=== PATIENT | female | born 1965 | race Asian ===

== ENCOUNTER 2020-09-03 22:23 | Emergency (ER) | payer OTHER, SELFPAY ==
--- NOTE | ~2020-09-03 | CT_ITS ---
EXAMINATION: CT abdomen pelvis w con EXAM DATE: 09/04/2020 00:25 INDICATION: Abdominal wall abscess. TECHNIQUE: Spiral CT of the abdomen and pelvis was performed following intravenous injection of 100 m L Omnipaque 350. Axial, coronal and sagittal images of the abdomen and pelvis were reviewed. The do se-length product (DLP) for this examination was 926.44 mGy-cm. The exposure was tailored according to patient size (auto mA exposure control), and iterative reconstruction (ASIR) was used as additiona l dose reduction technique. There is no prior study for comparison. FINDINGS: The liver, spleen, adrenal glands and pancreas are unremarkable. Gallbladder is unremarkab le. No biliary obstruction. Portal and splenic veins are patent. Kidneys enhance symmetrically. T here is no hydronephrosis. The uterus is not identified and has likely been surgically resected. T he bladder is unremarkable. There is no retroperitoneal or pelvic lymphadenopathy. There is mild s cattered arteriosclerotic disease. There is a rectosigmoid anastomosis. There is some presacral fat stranding. Small region of right low er pelvic free fluid measuring 1.4 x 4.5 cm, in dependent portion of pelvis and contiguous to several ileal loops. This could be postoperative seroma, and contain physiologic fluid from a ruptured cyst. Can't exclude infected fluid. There is right lower quadrant ileostomy. Some edema, fat stranding/ind uration in the subcutaneous fat below the umbilicus without drainable abscess. There are no findings to suggest appendicitis. The stomach and small bowel are unremarkable. There is expected amount of colonic stool. No free intraperitoneal gas. The heart is normal in size. T here are no pericardial or pleural effusions. Lingular calcified granuloma. There are no osteoblast ic or osteolytic lesions identified. IMPRESSION: 1. Anterior infraumbilical abdominal wall region of edema medial to the ostomy without drainable abs cess. 2. Presacral edema, small amount of right-sided pelvic fluid. Could be postoperative seroma, physiol ogic, less likely abscess. Reviewed, dictated and finalized at location A. IMPRESSION: 1. Anterior infraumbilical abdominal wall region of edema medial to the ostomy without drainable abscess. 2. Presacral edema, small amount of right-sided pelvic fluid. Could be postope rative seroma, physiologic, less likely abscess.
[2020-09-03 22:25] VITALS: BP 140/82; PULSE 96; RESP 18; O2SAT 98
[2020-09-03 22:30] VITALS: TEMP 36.3
[2020-09-03 23:00] VITALS: BP 107/81; PULSE 89; RESP 16; O2SAT 98
[2020-09-03] MEDS: ONDANSETRON INJ 4 MG/2 ML VIAL IV PUSH (23:39)
[2020-09-03] MEDS: HYDROmorphone HCL INJ (*CRX) 1 MG/ML SYR 0.5 MG IV PUSH (23:39)
--- NOTE | 2020-09-03 23:40 | ED.SKABFB ---
HPI - Skin/Abscess/Foreign Bdy General Chief complaint: Skin/Abscess/Foreign Body Stated complaint: burst abscess near ostomy Time Seen by Provider: 09/03/20 23:05 Source: patient and RN notes reviewed Mode of arrival: EMS Limitations: no limitations History of Present Illness HPI narrative: This is a 55 year old female with history of rectal CA, s/p colon resection with colostomy who presents for evaluation of abdominal wound. She states she developed redness, swelling and pain around her colostomy on . She states she had the colostomy placed in mid July at [facility]. Her surgeon started her on Amoxicillin on Tuesday. She has been taking her antibiotics but her wound has become more painful. She states her home health nurse placed dressing and a belt around her abdomen. Just prior to arrival she states the wound ruptured with pus and blood. She denies fever, nausea, vomiting. She was started on tramadol today. Related Data Allergies Allergy/AdvReac Type Severity Reaction Status Date / Time No Known Allergies Allergy Verified 09/03/20 23:38 Review of Systems Review of Systems: All systems reviewed & are unremarkable except as noted in HPI and below PMFSH Past Medical History Medical History (Updated 09/04/20 @ 07:53 by Jana Sanders MD) Colostomy in place Rectal cancer Social History Social History (Updated 09/03/20 @ 23:49 by Jana Sanders MD) Smoking status: Never smoker Exam Const: General: no acute distress and alert Orientation/consciousness: patient oriented x3 Resp: Effort & Inspection: normal respiratory effort and no retractions Auscultation: clear to auscultation bilaterally Cardio: Rate: regular rate Rhythm: regular rhythm Heart sounds: no murmurs GI: GI Palp: Yes Soft to palpation and Yes Tenderness to palpation present (GI) (along infection) Auscultation: normal bowel sounds Other: right mid abdomen colostomy, medial to colostomy is large erythematous area with induration 15 c x 10 cm with central area of necrotic wound draining blood. Neuro: General: patient oriented x3, moves all extremities and CN's II-XI intact bilaterally Psych: Mental Status: mental status grossly normal Affect: normal affect Course Reevaluation(s) Reevaluation #1: Patient is aware of CT report and that she is awaiting bed for transfer to [facility] Date: 09/04/20 Time: 02:39 Consultations Consultation #1: I spoke with Dr. Campbell of colorectal surgery. He accepts patient to service. No further recommendations at this time. Date: 09/04/20 Time: 02:39 Vital Signs Vital signs: Vital Signs Pulse Rate 96 09/03/20 22:25 Respiratory Rate 18 09/03/20 22:25 Blood Pressure 140/82 09/03/20 22:25 Pulse Oximetry 98 09/03/20 22:25 Temperature 97.7 F 09/04/20 04:56 Pulse Rate 71 09/04/20 04:53 Respiratory Rate 16 09/04/20 04:53 Blood Pressure 111/72 09/04/20 04:53 Pulse Oximetry 98 09/04/20 04:53 MDM - Skin/Abscess/Foreign Bdy Lab Data Attestation: I reviewed the patient's lab results. Result diagrams: 09/03/20 23:36 09/03/20 23:36 Labs: Lab Results 09/03/20 09/03/20 09/03/20 Range/Units 23:36 23:36 23:36 WBC 8.2 (4.5-10.0) K/mm3 RBC 3.93 L (4.2-5.4) M/mm3 Hgb 11.7 L (12.0-15.0) g/dL Hct 36.8 L (37.0-47.0) % MCV 93.6 (80-100) fl MCH 29.8 (26-34) pg MCHC 31.8 L (32-36) g/dl RDW 12.7 (11.5-14.5) % Plt Count 258 (150-375) k/mm3 MPV 9.4 (7.4-10.4) fl Immature Gran % (Auto) 1.6 H (0-0.5) % Neut % (Auto) 74.8 H (45.5-73.1) % Lymph % (Auto) 8.8 L (18.3-44.2) % [place] % (Auto) 7.6 (2.6-8.5) % Eos % (Auto) 7.0 H (0-4.4) % Baso % (Auto) 0.2 (0.2-1.2) % Lymph # (Auto) 0.72 L (0.9-3.2) K/mm3 [place] # (Auto) 0.6 (0.1-0.6) K/mm3 Eos # (Auto) 0.6 H (0-0.3) K/mm3 Baso # (Auto) 0.0 (0.0-0.1) K/mm3 Abs Immat Gran (auto) 0.13 H (0.
[2020-09-03 23:42] LABS: Basophils Percent Auto 0.2 % (0.2-1.2); Eosinophils Absolute Auto 0.6 K/mm3 (0-0.3); Hematocrit 36.8 % (37.0-47.0); Hemoglobin 11.7 g/dL (12.0-15.0); Immature Granulocyte Absolute 0.13 K/mm3 (0.00-0.031); Immature Granulocyte Percent A 1.6 % (0-0.5); Lymphocytes Absolute Auto 0.72 K/mm3 (0.9-3.2); Lymphocytes Percent Auto 8.8 % (18.3-44.2); Mean Corpuscular HGB Conc 31.8 g/dl (32-36); Mean Corpuscular Hemoglobin 29.8 pg (26-34); Mean Corpuscular Volume 93.6 fl (80-100); Mean Platelet Volume 9.4 fl (7.4-10.4); Monocytes Absolute Auto 0.6 K/mm3 (0.1-0.6); Monocytes Percent Auto 7.6 % (2.6-8.5); Neutrophils Absolute Auto 6.1 K/mm3 (1.3-6.7); Neutrophils Percent Auto 74.8 % (45.5-73.1); Platelet Count Result 258 k/mm3 (150-375); Red Blood Count 3.93 M/mm3 (4.2-5.4); Red Cell Distribution Width 12.7 % (11.5-14.5); White Blood Count 8.2 K/mm3 (4.5-10.0)
[2020-09-03 23:53] LABS: INR 0.9
[2020-09-03 23:54] LABS: Partial Thromboplastin Time 33.7 SECONDS (22.3-36.8)
[2020-09-03 23:55] LABS: Alanine Aminotransferase 121 U/L (4-35); Albumin Level 3.8 g/dL (3.5-5.1); Alkaline Phosphatase 229 U/L (38-126); Anion Gap 11 mmol/L (8-16); Aspartate Amino Transferase 51 U/L (14-36); Bilirubin,Total 0.4 mg/dL (0.2-1.3); Blood Urea Nitrogen 12 mg/dL (7-17); CRP 7.9 mg/dL (<1.0); Calcium 9.6 mg/dL (8.4-10.2); Carbon Dioxide 27 mmol/L (22-30); Chloride 102 mmol/L (98-107); Estimated CRCL calculation 90 ml/min; Estimated Glomerular Filt Rate > 60; Glucose 127 mg/dL (65-105); Potassium 3.7 mmol/L (3.4-5.0); Sodium 140 mmol/L (137-145)
[2020-09-04] VITALS: BP 104/77; PULSE 81; RESP 16; O2SAT 98
[2020-09-04 01:00] VITALS: BP 103/69; PULSE 87; RESP 18; O2SAT 98
[2020-09-04 02:00] VITALS: BP 122/84; PULSE 84; RESP 18; O2SAT 98
--- NOTE | 2020-09-04 02:54 | PC.NURSE ---
0045-Report to Rolanda at [facility] transfer center, no bed available at this time
--- NOTE | 2020-09-04 04:10 | PC.NURSE ---
Patient moved to room 1 where a regular hospital bed was placed for her. Patient ambulated without diff.
--- NOTE | 2020-09-04 04:51 | PC.NURSE ---
called [facility] to request transport. ETA 15-20 minutes
[2020-09-04 04:53] VITALS: BP 111/72; PULSE 71; RESP 16; O2SAT 98
--- NOTE | 2020-09-04 04:53 | PC.NURSE ---
Report called to Lyric FRYE at [facility] for patient to go to room 0443
[2020-09-04 04:56] VITALS: TEMP 36.5
== END 2020-09-04 05:21 | disposition short-term general hospital (02) ==
PROVIDERS: Emergency Provider General Practice
DX: L02.211 Cutaneous abscess of abdominal wall (principal); L03.311 Cellulitis of abdominal wall; Z93.3 Colostomy status
CPT/HCPCS: 36415; 74177; 80053; 85025; 85610; 85730; 86140; 87040; 96365; 96366; 96367; 96375; 99284; 99285; J1170; J2405; J2543; J3370; Q9967

== ENCOUNTER 2020-12-27 16:57 | Emergency (ER) | payer OTHER, SELFPAY ==
[2020-12-27 17:08] VITALS: BP 131/80; PULSE 82; RESP 16; TEMP 36.2; O2SAT 100
--- NOTE | 2020-12-27 17:17 | ED.FEMALEGU ---
HPI - Female Genitourinary General Chief complaint: Urogenital-Female Stated complaint: UTI Time Seen by Provider: 12/27/20 17:17 Source: patient Mode of arrival: ambulatory Limitations: no limitations History of Present Illness HPI Narrative: Nael Wilder is a 55 yo female with PMH of colon cancer who comes to express care with urinary frequency and burning that started yesterday. She has not had a UTI for 4 years but has had them over the years. She is post chemo and is learning to manage left or symptoms of colon resection etc. Related Data Home Medications Medication Instructions Recorded Confirmed atropine 12/27/20 diphenoxylate-atropine tablet 12/27/20 Allergies Allergy/AdvReac Type Severity Reaction Status Date / Time No Known Allergies Allergy Verified 12/27/20 17:26 Review of Systems Review of Systems: CONSTITUTIONAL: Denies fever, chills, sweats. EYES: Denies visual changes, redness, discharge. ENT: Denies rhinorrhea, congestion, sore throat, otalgia. CARDIOVASCULAR: Denies chest pain, palpitations, edema. RESPIRATORY: Denies dyspnea, wheezing, cough GASTROINTESTINAL: Denies abdominal pain, nausea, vomiting, diarrhea. GENITOURINARY: has dysuria, hematuria, abnormal discharge SKIN: Denies rash or itching. NEUROLOGIC: Denies numbness, or focal weakness. PSYCHIATRIC: Denies anxiety or depression. [facility] Past Medical History Medical History Colostomy in place Rectal cancer Social History Social History (Updated 12/27/20 @ 17:34 by Sarah Eid CNP) Smoking status: Never smoker Alcohol intake: current Comments At time of signature, I agree with nursing past medical, surgical, social and family history. There is no relevant family history pertinent to the presenting complaint. Exam Narrative: GENERAL: This is a well-nourished, well-developed patient, in mild distress. HEAD: normocephalic, atraumatic. EYES: Sclera clear/white. Vision is grossly intact. EARS: External ears normal, . Hearing grossly intact. NOSE: External nose normal without nasal discharge, nares without redness, no rhinorrhea. THROAT: Mucous membranes moist, NECK: Neck supple, CARDIOVASCULAR: Regular rate and rhythm without murmurs, gallops, or rubs. RESPIRATORY: Clear to auscultation. Breath sounds equal bilaterally. No wheezes, rales, or rhonchi. GASTROINTESTINAL: Abdomen soft, non-tender, has colostomy in place SKIN: warm, intact with no suspicious lesions or rash, good texture and turgor. NEURO: awake, alert, and oriented to person, place and time. There were no obvious focal neurologic abnormalities. Steady gait EXTREMITIES: Normal range of motion. BACK: Nontender without deformity Course Course Emergency Course: [facility] yesterday UA shows positive nitrite, 3+ leukocytes, 1+ blood Started on cephalexin 500 mg 1 twice daily x5 days, has had a hysterectomy and she states that she does not need Diflucan Vital Signs Vital signs: Vital Signs Temperature 97.1 F L 12/27/20 17:08 Pulse Rate 82 12/27/20 17:08 Respiratory Rate 16 12/27/20 17:08 Blood Pressure 131/80 12/27/20 17:08 Pulse Oximetry 100 12/27/20 17:08 Temperature 97.1 F L 12/27/20 17:08 Pulse Rate 82 12/27/20 17:08 Respiratory Rate 16 12/27/20 17:08 Blood Pressure 131/80 12/27/20 17:08 Pulse Oximetry 100 12/27/20 17:08 MDM - Female Genitourinary Differential Diagnosis Differential diagnosis: Likely urinary tract infection, cystitis and other Lab Data Labs: Urine Glucose Negative Reference Range: Negative Urine Bilirubin Negative Reference Range: Negative Urine Ketone Negative Reference Range: Negative Urin
== END 2020-12-27 17:40 | disposition home or self-care (01) ==
PROVIDERS: Emergency Provider Nurse Practitioner
DX: N30.01 Acute cystitis with hematuria (principal); Z85.048 Personal history of other malignant neoplasm of rectum, rectosigmoid junction, and anus
CPT/HCPCS: 81003; 87077; 87086; 87088; 87186; 99213; G0463

== ENCOUNTER 2021-01-06 18:31 | Emergency (ER) | payer OTHER, SELFPAY ==
--- NOTE | ~2021-01-06 | XR_ITS ---
EXAMINATION: XR knee LT 3V DATE: 01/06/2021 19:27 INDICATION: Left knee injury. TECHNIQUE: 3 views of left knee were obtained. COMPARISON: None. FINDINGS: Bone alignment is normal. No fracture. There is mild osteoarthritis of medial and patellofe moral compartments. No knee joint effusion. There is a bandage inferior to the patella. No radiopaque foreign body. IMPRESSION: 1. Mild left knee osteoarthritis. Reviewed, dictated and finalized at location A.
[2021-01-06 19:09] VITALS: BP 135/88; PULSE 85; RESP 18; TEMP 36.8; O2SAT 98
--- NOTE | 2021-01-06 22:55 | ED.GENADULT ---
HPI - General Adult General Chief complaint: Wound/Laceration Stated complaint: fell, knee lac Time Seen by Provider: 01/06/21 22:04 History of Present Illness HPI narrative: Patient is a 56-year-old female presents emerged from with chief complaint of left knee pain. Patient reports that she was walking with heels on a incline driveway lost her balance and fell landing on her left knee. Patient denies any other injuries reports there is about a 10 cm irregular flap laceration to her left knee. Patient reports pain with range of motion reports improved with rest. Patient states unsure of her last tetanus shot. Related Data Home Medications Medication Instructions Recorded Confirmed diphenoxylate-atropine tablet 12/27/20 Allergies Allergy/AdvReac Type Severity Reaction Status Date / Time No Known Allergies Allergy Verified 01/06/21 19:13 Review of Systems Review of Systems: A 10 system review of systems was completed on the patient and is negative except for what is stated in the HPI. Nursing and ancillary documentation was reviewed. [facility] Past Medical History Medical History Colostomy in place Rectal cancer Social History Social History Smoking status: Never smoker Alcohol intake: current Exam Narrative: GENERAL: Well-appearing, well-nourished, and in no acute distress. HEAD: Normocephalic, atraumatic. EYES: PERRLA and EOMI. ENT: Nares clear, no rhinorrhea or epistaxis. Mucous membranes moist. NECK: Supple. CHEST: Clear to auscultation. No respiratory distress. HEART: Regular rate and rhythm. No murmur heard. Normal peripheral pulses. ABDOMEN: Soft, nontender, nondistended, normal active bowel sounds. EXTREMITIES: Normal range of motion. No edema. There is a 10 cm flap on the left knee that goes into the subcu tissue SKIN: Warm, dry, no rash. NEURO: No focal deficits. Alert and oriented x3. PSYCH: Normal mood and affect. Course Vital Signs Vital signs: Vital Signs Temperature 36.8 C 01/06/21 19:09 Pulse Rate 85 01/06/21 19:09 Respiratory Rate 18 01/06/21 19:09 Blood Pressure 135/88 01/06/21 19:09 Pulse Oximetry 98 01/06/21 19:09 Temperature 36.8 C 01/06/21 19:09 Pulse Rate 85 01/06/21 19:09 Respiratory Rate 18 01/06/21 19:09 Blood Pressure 135/88 01/06/21 19:09 Pulse Oximetry 98 01/06/21 19:09 Procedures Laceration Laceration 1: Date: 01/06/21 Time: 22:55 Site: lower extremity (left knee) Side (If applicable): left Size (cm): 10 Description: stellate and flap Depth: involves muscle layer Local Anesthetic: lidocaine 1% Amount of anesthesia used (mL): 20 Pre-repair: wound explored ====== Skin Level ====== Skin layer closed with: nylon Size (cm): 4-0 Number of sutures: 14 Technique: simple, interrupted ====== Subcutaneous Layer ====== Subcutaneous layer closed with: vicryl Size: 4-0 Number of sutures: 1 Technique: simple, interrupted ====== Muscle Layer ====== ====== Tendon Layer ====== Medical Decision Making Vital Signs Vital Signs: Vital Signs Temperature 36.8 C 01/06/21 19:09 Pulse Rate 85 01/06/21 19:09 Respiratory Rate 18 01/06/21 19:09 Blood Pressure 135/88 01/06/21 19:09 Pulse Oximetry 98 01/06/21 19:09 Temperature 36.8 C 01/06/21 19:09 Pulse Rate 85 01/06/21 19:09 Respiratory Rate 18 01/06/21 19:09 Blood Pressure 135/88 01/06/21 19:09 Pulse Oximetry 98 01/06/21 19:09 Discharge Plan Discharge Clinical Impression: Laceration of knee, left Qualifiers: Encounter type: initial encounter Qualified Code(s): S81.012A - Laceration without foreign body, left knee, initial encounter Patient Disposition: Home, Self-Care Condit
[2021-01-06] MEDS: TETANUS,DIPHTHERIA,AC PERTUSSIS ADULT (0.5 ML) BOOSTRIX IM (23:06)
[2021-01-06 23:30] VITALS: BP 128/82; PULSE 80; RESP 18; TEMP 36.8; O2SAT 99
== END 2021-01-06 23:30 | disposition home or self-care (01) ==
PROVIDERS: Emergency Provider Emergency Medicine
DX: S81.012A Laceration without foreign body, left knee, initial encounter (principal); W01.0XXA Fall on same level from slipping, tripping and stumbling without subsequent striking against object, initial encounter; Z23 Encounter for immunization; Z85.038 Personal history of other malignant neoplasm of large intestine; Z93.3 Colostomy status
CPT/HCPCS: 12034; 73562; 90471; 90715; 99283

== ENCOUNTER 2023-07-15 11:53 | Inpatient (IN) | payer BC, SELFPAY ==
[2023-07-15] VITALS (8 sets, daily range): BP systolic 109–134; BP diastolic 62–88; PULSE 81–98; RESP 16–18; TEMP 36.6–37; O2SAT 96–99; BMI 31.4
--- NOTE | ~2023-07-15 | CT_ITS ---
EXAMINATION: CT abdomen pelvis w con DATE: 07/15/2023 14:33 INDICATION: Abdominal pain, nausea and vomiting TECHNIQUE: Computed tomography (CT) of the abdomen and pelvis was performed with 100 mL Omnipaque-350 intravenous contrast. Automated exposure control and iterative reconstruction technique were employe d. The dose-length product was 999.07 mGy-cm. COMPARISON: None FINDINGS: Lung bases are clear. Heart size is normal. No pericardial or pleural effusion. Focal hepatic steatos is at the ligamentum teres. Gallbladder, pancreas, bilateral adrenal glands and kidneys are normal. S plenic calcifications consistent with old granulomatous disease. Normal appendix. Postoperative jessica e of prior bowel surgery with rectosigmoid anastomosis an additional anastomosis at the terminal ileu m. There is some focal postoperative scarring in the infraumbilical anterior abdominal wall near the ileal anastomosis. There are some wall thickening in the ileum immediately proximal to the anastomosi s consistent with a focal ileitis. Bladder is normal. The uterus is not identified and has likely bee n surgically resected. Small amount of ascites in the pelvis. No abscess or free intraperitoneal gas. No pathologically enlarged abdominal or pelvic lymphadenopathy. Bones are unremarkable. IMPRESSION: 1. Wall thickening along the distal ileum immediately proximal to the anastomosis at the terminal ile um consistent with nonspecific ileitis which could be be due to Crohn's disease or infectious ileitis . 2. Small amount of ascites in the pelvis. No abscess or free intraperitoneal gas. Reviewed, dictated and finalized at location A. IMPRESSION: 1. Wall thickening along the distal ileum immediately proximal to the anastomos is at the terminal ileum consistent with nonspecific ileitis which could be be due to Crohn's disease or infectious ileitis. 2. Small amount of ascites in the pelvis. No abscess or free intraperitoneal ga s.
--- NOTE | 2023-07-15 13:05 | ED.ABDPAIN ---
HPI - Abdominal Pain General Chief Complaint: Abdominal Pain Stated Complaint: Abd Pain Time Seen by Provider: 07/15/23 11:59 History of Present Illness HPI narrative: 58-year-old female presenting To the emergency department for evaluation of nausea vomiting abdominal cramping this been ongoing since 3:00 a.m. this morning. Patient does report prior history of hysterectomy and ileostomy secondary to colorectal cancer. Patient reports her ileostomy was reversed approximately 1 year ago. Patient has no prior history of bowel obstruction. Patient states he is still passing flatus and stool. Related Data Home Medications Medication Instructions Recorded Confirmed diphenoxylate-atropine 2.5 3 tablet PO TID 12/27/20 07/15/23 mg-0.025 mg tablet Imodium See Rx Instructions .Route .COMPLEX 07/15/23 07/15/23 cholestyramine (with sugar) 4 gram 1 ea PO BID 07/15/23 07/15/23 oral powder Allergies Allergy/AdvReac Type Severity Reaction Status Date / Time No Known Allergies Allergy Verified 07/15/23 12:01 Review of Systems Review of Systems: All systems reviewed & are unremarkable except as noted in HPI and below PMFSH Past Medical History Medical History (Updated 07/17/23 @ 12:32 by Rivera Montiel MD) Leukocytosis Rectal cancer Surgical History Surgical History (Updated 07/17/23 @ 12:32 by Rivera Montiel MD) History of colon resection History of ileostomy History of partial hysterectomy Social History Social History (Updated 07/15/23 @ 20:37 by Sheila Casey PA-C) Social History: Surrogate medical decision maker: Afshin Tanner, spouse. Code status: Full code. Smoking status: Never smoker Alcohol intake: current Alcohol use details: Social alcohol use in moderation. Substance use: never Do You Feel Safe in your Home?: Yes Lack of Transportation: No Lack of Food: Never True Current Housing: I Have Housing Concerned About Future Housing: No Difficulty Paying Gas/Electric Bills: No Difficulty Paying for Meds: No Currently Unemployed: No Education: Trade/Vocational Certificate Difficulty w/ Childcare or Family Care: No Additional living arrangements comments: Lives with . They have a grown son and daughter. Spiritual care concerns: No Exam Narrative: APPEARANCE: uncomfortable appearing HEAD: normocephalic, atraumatic. EYES: PERRLA/EOMI, conjunctivae clear. NOSE: Normal no drainage EARS:TMS clear with good light reflex. THROAT: Pharynx clear, no exudate. NECK: Supple. No adenopathy, no masses. RESPIRATORY: Airway patent, respirations nonlabored. Clear to auscultation bilaterally, no rales, rhonchi, wheezing. CARDIOVASCULAR: Regular rate and rhythm without murmurs rubs or gallops. ABDOMINAL: Nonspecific bowel tenderness, normal bowel sounds, MUSCULOSKELETAL: Moves all extremities. Strength/ROM intact, No edema, No calf tenderness. NEURO: Alert. Cranial nerves II through XII intact. Good gait. Good coordination SKIN: Warm, dry. Normal Color Course Course Emergency Course: Patient was admitted Vital Signs Vital signs: Vital Signs Temperature 98.6 F 07/15/23 11:59 Pulse Rate 81 07/15/23 11:59 Respiratory Rate 16 07/15/23 11:59 Blood Pressure 134/88 07/15/23 11:59 Pulse Oximetry 97 07/15/23 11:59 Oxygen Delivery Room Air 07/15/23 11:59 Temperature 98.6 F 07/17/23 03:22 Pulse Rate 64 07/17/23 03:22 Respiratory Rate 20 07/17/23 03:22 Blood Pressure 118/58 L 07/17/23 03:22 Pulse Oximetry 96 07/17/23 07:23 Oxygen Delivery Room Air 07/17/23 09:11 MDM - Abdominal Pain MDM Narrative Medical decision making narrative: 58-year-old female presenting to the emergency department for evaluation for abdominal cramping with associated nausea and vomiting. Baseline labs were ordered and CT scan was ordered to evaluate for bowel obstruction. Patient was ordered IV flu
[2023-07-15 13:58] LABS: Basophils Percent Auto 0.2 % (0.2-1.2); Hematocrit 48.3 % (37.0-47.0); Hemoglobin 15.8 g/dL (12.0-15.0); Immature Granulocyte Absolute 0.03 K/mm3 (0.00-0.031); Immature Granulocyte Percent A 0.2 % (0-0.5); Lymphocytes Percent Auto 5.5 % (18.3-44.2); Mean Corpuscular HGB Conc 32.7 g/dl (32-36); Mean Corpuscular Hemoglobin 30.8 pg (26-34); Mean Corpuscular Volume 94.2 fl (80-100); Mean Platelet Volume 11.1 fl (7.4-10.4); Monocytes Absolute Auto 0.6 K/mm3 (0.1-0.6); Neutrophils Absolute Auto 11.3 K/mm3 (1.3-6.7); Neutrophils Percent Auto 89.1 % (45.5-73.1); Platelet Count Result 200 k/mm3 (150-375); Red Blood Count 5.13 M/mm3 (4.2-5.4); Red Cell Distribution Width 12.6 % (11.5-14.5); White Blood Count 12.7 K/mm3 (4.5-10.0)
[2023-07-15] MEDS: SODIUM CHLORIDE 0.9% IV 1,000 ML 999 ML IV CONT ×2 (14:07→16:43)
[2023-07-15] MEDS: HYDROmorphone HCL INJ (*CRX) 1 MG/ML SYR IV PUSH (14:07)
[2023-07-15] MEDS: ONDANSETRON INJ 4 MG/2 ML VIAL IV PUSH (14:07)
[2023-07-15 14:12] LABS: Alanine Aminotransferase 20 U/L (6-35); Albumin Level 5.1 g/dL (3.5-5.1); Alkaline Phosphatase 132 U/L (38-126); Anion Gap 11 mmol/L (4-12); Aspartate Amino Transferase 22 U/L (14-36); Blood Urea Nitrogen 15 mg/dL (7-17); Calcium 9.8 mg/dL (8.4-10.2); Carbon Dioxide 27 mmol/L (22-30); Chloride 105 mmol/L (98-107); Estimated CRCL calculation 85 ml/min; Estimated Glomerular Filt Rate > 60; Glucose 127 mg/dL (65-110); INR 0.9; Lipase 44 U/L (23-300); Partial Thromboplastin Time 26.1 Seconds (22.3-36.8); Potassium 3.8 mmol/L (3.4-5.0); Prothrombin Time 12.8 Seconds (11.1-14.7); Sodium 143 mmol/L (137-145)
[2023-07-15 14:20] LABS: Lactic Acid Reflex 4.2 mmol/L (0.7-2.0)
[2023-07-15 14:21] LABS: Appearance Urine Cloudy (Clear); Bacteria Urine 4+ /hpf; Bilirubin Urine Negative (Negative); Blood Urine 1+ (Negative); Color Urine Yellow (Yellow); Glucose Urine UA Negative (Negative); Ketones Urine 1+ mg/dL (Negative); Leukocyte Esterase Ur 2+ LEU/UL (Negative); Nitrate Urine Positive (Negative); Non Pathogenic Casts 0-2; Protein Urine 1+ mg/dL (Negative); RBC Urine 0-2 /hpf (0-2); Specific Grav Ur 1.026 (1.001-1.035); Squamous Epithelial Cell Urine Moderate /hpf (Few); Urobilinogen Urine 0.2 mg/dL (<2.0); WBC Urine >100 /hpf (0-3)
[2023-07-15 14:24] LABS: Add Urine Microscopic? YES
--- NOTE | 2023-07-15 15:38 | PC.NURSE ---
Phlebotomy notified to assist with collecting blood cultures. Due to pt difficult stick, phlebotomy to draw
--- NOTE | 2023-07-15 16:48 | PC.NURSE ---
Phlebotomy notified a second time for blood cultures.
[2023-07-15 16:56] LABS: Reflex Lactic Acid Yes or No Add Lactic
--- NOTE | 2023-07-15 17:37 | PC.NURSE ---
This patient, Nael Tanner, was admitted to Medical Room 246-01. Patient/family oriented to hospital policies and general routines including ID bracelet, bed and alarms, visiting hours, pain management, procedures, bathroom and other care routines, personal items, smoking policy, room service/diet, and visiting hours. Information on how to activate the Rapid Response Team has been discussed. Patient/Family are encouraged to report perceived risks to care and to ask questions if they do not understand what they are told or what they should do.
--- NOTE | 2023-07-15 18:10 | PM.IMHP ---
H&P: HPI History of Present Illness Date/Time: 07/15/23 16:00 Chief Complaint: Abdominal pain. Narrative: This is a very pleasant 58-year-old female with history of rectal cancer status post surgical resection and chemoradiation with prior ileostomy and subsequent reversal and history of partial hysterectomy who presented to the emergency department for evaluation of abdominal pain. The patient provides the following history. She felt fine when she went to bed last night and was awakened from sleep at about 03:00 with nausea, cramping periumbilical abdominal pain, and 1 episode of emesis which consisted of undigested food from the prior evenings dinner. She had 2 other episodes of emesis which she describes as green bile. This morning she passed two loose bowel movements which did not contain blood or mucus. She denies fever, chest pain, shortness of breath, hematemesis, melena, hematochezia, and dysuria. No known sick contacts. No personal or family history of inflammatory bowel disease. Of note the patient has chronic diarrhea and takes Imodium, Lomotil, and cholestyramine at home. In the ED: She was afebrile on arrival with stable blood pressures and heart rate. Labs were significant for a WBC count of 12.7, hemoglobin 15.8 hematocrit 48.3%, lactic acid 4.2. Urine was positive for 1+ protein, 1+ ketones, + blood positive nitrates, 2+ leukocyte esterase, greater than 4 WBC and 4+ bacteria CT of the abdomen and pelvis showed wall thickening along the distal ileum immediately proximal to the anastomosis at the terminal ileum consistent with nonspecific ileitis and a small of ascites in the pelvis. She received a dose of ceftriaxone and metronidazole in addition to normal saline bolus, ondansetron, and hydromorphone and she is being admitted in this setting for further treatment and evaluation. Review of Systems Review of Systems: 12 systems were reviewed and are negative except for as per HPI. [facility] Past Medical History Medical History (Updated 07/15/23 @ 20:35 by Sheila Casey PA-C) Rectal cancer Surgical History Surgical History (Updated 07/15/23 @ 20:35 by Sheila Casey PA-C) History of colon resection History of ileostomy History of partial hysterectomy Social History Social History (Updated 07/15/23 @ 20:37 by Sheila Casey PA-C) Social History: Surrogate medical decision maker: Afshin Tanner, spouse. Code status: Full code. Smoking status: Never smoker Alcohol intake: current Alcohol use details: Social alcohol use in moderation. Substance use: never Do You Feel Safe in your Home?: Yes Lack of Transportation: No Lack of Food: Never True Current Housing: I Have Housing Concerned About Future Housing: No Difficulty Paying Gas/Electric Bills: No Difficulty Paying for Meds: No Currently Unemployed: No Education: Trade/Vocational Certificate Difficulty w/ Childcare or Family Care: No Additional living arrangements comments: Lives with . They have a grown son and daughter. Spiritual care concerns: No Meds Home Medications and Allergies Home Medications Medication Instructions Recorded Confirmed Type diphenoxylate-atropine 2.5 3 tablet PO TID 12/27/20 07/15/23 History mg-0.025 mg tablet Imodium See Rx Instructions .Route .COMPLEX 07/15/23 07/15/23 History cholestyramine (with sugar) 4 gram 1 ea PO BID 07/15/23 07/15/23 History oral powder Allergies Allergy/AdvReac Type Severity Reaction Status Date / Time No Known Allergies Allergy Verified 07/15/23 12:01 Vital Signs Vital Signs - 24 hr 07/15/23 11:59 07/15/23 14:10 07/15/23 12:00 Temperature 98.6 F 97.8 F Pulse Rate 81 97 85 Respiratory Rate 16 18 18 Blood Pressure 134/88 123/82 134/88 Pulse Oximetry 97 96 97 Oxygen Delivery Room Air 07/15/23 14:05 07/15/23 16:48 07/15/23 17:30 Temperature 97.8 F 98.0 F Pulse Rate 98 89 90 Respiratory Rate 18 18 Blood Press
[2023-07-15 18:20] LABS: Lactic Acid 2.5 mmol/L (0.7-2.0)
[2023-07-15] MEDS: SODIUM CHLORIDE 0.9% IV 1,000 ML 125 ML IV CONT (18:42)
--- NOTE | 2023-07-15 20:11 | PC.NURSE ---
Called pharmacy to ask if Flagyl administration could be rescheduled bc the dose due at 1500 was not given. Pharmacy said to non-administer the 1500 dose and they will reschedule the next dose for now.
[2023-07-15] MEDS: metroNIDAZOLE 500 MG/ISO 100ML 500 MG/100 ML BAG 100 MG IVPB (20:23)
[2023-07-16] MEDS: metroNIDAZOLE 500 MG/ISO 100ML 500 MG/100 ML BAG 100 MG IVPB ×3 (03:43→20:16)
[2023-07-16 04:23] VITALS: BP 111/57; PULSE 71; RESP 20; TEMP 37.3; O2SAT 97
[2023-07-16 04:33] LABS: Hematocrit 38.1 % (37.0-47.0); Hemoglobin 12.3 g/dL (12.0-15.0); Mean Corpuscular HGB Conc 32.3 g/dl (32-36); Mean Corpuscular Hemoglobin 30.4 pg (26-34); Mean Corpuscular Volume 94.3 fl (80-100); Mean Platelet Volume 11.1 fl (7.4-10.4); Platelet Count Result 154 k/mm3 (150-375); Red Blood Count 4.04 M/mm3 (4.2-5.4); Red Cell Distribution Width 12.6 % (11.5-14.5); White Blood Count 5.2 K/mm3 (4.5-10.0)
[2023-07-16 04:46] LABS: Anion Gap 7 mmol/L (4-12); Blood Urea Nitrogen 11 mg/dL (7-17); Calcium 8.3 mg/dL (8.4-10.2); Carbon Dioxide 25 mmol/L (22-30); Chloride 107 mmol/L (98-107); Estimated CRCL calculation 86 ml/min; Estimated Glomerular Filt Rate > 60; Glucose 117 mg/dL (65-110); Lactic Acid Reflex 1.7 mmol/L (0.7-2.0); Potassium 3.3 mmol/L (3.4-5.0); Sodium 139 mmol/L (137-145)
[2023-07-16 07:31] VITALS: O2SAT 97
[2023-07-16] MEDS: SODIUM CHLORIDE 0.9% IV 1,000 ML 100 ML IV CONT (11:59)
--- NOTE | 2023-07-16 12:12 | PM.IMPN ---
Progress Note: A&P Assessment and Plan (1) Ileitis: Code(s): K52.9 - Noninfective gastroenteritis and colitis, unspecified Status: Acute Assessment and Plan: 07/16/2023: CT of the abdomen pelvis with contrast showing wall thickening along the distal ileum immediately proximal to the anastomosis at the terminal ileum consistent with nonspecific ileitis which could be due to Crohn's disease or infectious ileitis, small amount of ascites in the pelvis, no abscess or free air. Initial white blood cell count was 12.7, now down to 5.2 this morning Patient still reporting abdominal fullness, had a normal soft bowel movement today, passing flatus, she denies any nausea or vomiting at this time. Will check for C diff and get stool culture GI consulted Patient has history of colorectal cancer however has been in remission for the last 2 years. She is a patient of Dr. Mai. She is recently had an EGD and colonoscopy over at [facility] about 4 months ago which was said to be normal. Blood culture showing no growth on preliminary read Patient currently on Rocephin and Flagyl (2) Urinary tract infection: Code(s): N39.0 - Urinary tract infection, site not specified Status: Acute Assessment and Plan: 07/16/2023: UA showing 1+ protein, 1+ ketone, 1+ urine blood, positive nitrate, 2+ leukocyte greater than 100 urine wbc's, 4+ urine bacteria, moderate urine squamous epithelial cells noted Urine culture ordered was obtained, currently pending Blood culture showing no growth preliminary read Continue Rocephin (3) Dehydration: Code(s): E86.0 - Dehydration Status: Acute Assessment and Plan: 07/16/2023: Patient given 2 L saline in ED She was started on IV fluids Currently euvolemic, IV fluids DC today (4) Rectal cancer: Code(s): C20 - Malignant neoplasm of rectum Status: Acute Assessment and Plan: 07/16/2023: Currently in remission for the last 2 years, she is a patient of Dr. Mai. Last checkup was 4 months ago where she had an EGD and a colonoscopy which was all said to be normal. Time Spent With Patient Time with patient: 25 - 35 minutes Subjective Date/time seen: 07/16/23 12:12 Interval history: 06/14/23: ( copy forward from chart) This is a very pleasant 58-year-old female with history of rectal cancer status post surgical resection and chemoradiation with prior ileostomy and subsequent reversal and history of partial hysterectomy who presented to the emergency department for evaluation of abdominal pain. The patient provides the following history. She felt fine when she went to bed last night and was awakened from sleep at about 03:00 with nausea, cramping periumbilical abdominal pain, and 1 episode of emesis which consisted of undigested food from the prior evenings dinner. She had 2 other episodes of emesis which she describes as green bile. This morning she passed two loose bowel movements which did not contain blood or mucus. She denies fever, chest pain, shortness of breath, hematemesis, melena, hematochezia, and dysuria. No known sick contacts. No personal or family history of inflammatory bowel disease. Of note the patient has chronic diarrhea and takes Imodium, Lomotil, and cholestyramine at home. In the ED: She was afebrile on arrival with stable blood pressures and heart rate. Labs were significant for a WBC count of 12.7, hemoglobin 15.8 hematocrit 48.3%, lactic acid 4.2. Urine was positive for 1+ protein, 1+ ketones, + blood positive nitrates, 2+ leukocyte esterase, greater than 4 WBC and 4+ bacteria CT of the abdomen and pelvis showed wall thickening along the distal ileum immediately proximal to the anastomosis at the terminal ileum consistent with nonspecific ileitis and a small of ascites in the pelvis. She received a dose of ceftriaxone and metronidazole in addition to normal saline bolus, ondansetron, and hydromorphone and she is being admitted in this setting fo
[2023-07-16 14:00] VITALS: BP 121/69; PULSE 68; RESP 18; TEMP 37.1; O2SAT 98
[2023-07-16 19:52] VITALS: BP 138/84; PULSE 71; RESP 16; TEMP 36.4; O2SAT 98
[2023-07-16 21:23] VITALS: O2SAT 98
[2023-07-17 03:22] VITALS: BP 118/58; PULSE 64; RESP 20; TEMP 37; O2SAT 98
[2023-07-17] MEDS: metroNIDAZOLE 500 MG/ISO 100ML 500 MG/100 ML BAG 100 MG IVPB (03:22)
[2023-07-17 07:23] VITALS: O2SAT 96
--- NOTE | 2023-07-17 12:28 | WPDGICN ---
Assessment and Plan Assessment and plan (1) Ileitis: Code(s): K52.9 - Noninfective gastroenteritis and colitis, unspecified Status: Acute Assessment and Plan: she is doing much better normalization of elevated wbc, lactic acid after fluids and abx, GI exam benign today she is back to her baseline and tolerated diet she can go home, follow-up with her colorectal surgeon ? infectious (2) Urinary tract infection: Code(s): N39.0 - Urinary tract infection, site not specified Status: Acute Assessment and Plan: on abx (3) Dehydration: Code(s): E86.0 - Dehydration Status: Acute Assessment and Plan: on admission with hemoconcentration and high wbc, resolved now after hydration (4) Leukocytosis: Code(s): D72.829 - Elevated white blood cell count, unspecified Status: Acute Assessment and Plan: resolved (5) Sepsis: Code(s): A41.9 - Sepsis, unspecified organism Status: Acute Assessment and Plan: treated (6) History of colon resection: Code(s): Z90.49 - Acquired absence of other specified parts of digestive tract Status: Acute GI Consult Note Consult date/time: 07/17/23 12:28 Reason for consult: abdominal pain, n/v HPI: Nael Tanner is a 58 year old female with history of rectal cancer in 2020 status post surgical resection and chemoradiation with prior ileostomy and subsequent reversal in 2020, partial hysterectomy who presented to the emergency department for evaluation of abdominal pain. Pain started William and got severe, also had nausea with bilious emesis. 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 She had cramping periumbilical abdominal pain, denies diarrhea. Her last colonoscopy [address] Mai. She normally tends to have loose stools and takes Imodium, Lomotil, and cholestyramine at home. ER evaluation WBC count of 12.7, hemoglobin 15.8 hematocrit 48.3%, lactic acid 4.2. Urine was positive for 1+ protein, 1+ ketones, + blood positive nitrates, 2+ leukocyte esterase, greater than 4 WBC and 4+ bacteria. CT of the abdomen and pelvis showed wall thickening along the distal ileum immediately proximal to the anastomosis at the terminal ileum consistent with nonspecific ileitis and a small of ascites in the pelvis.? She is already feeling much better, no more pain and feeling like going home. She was given abx. Review of Systems Constitutional: Constitutional: Denies headache(s) and Denies weakness Eyes: Eyes: Denies blurry vision ENT: Reports Normal hearing present, Denies headache(s) and Denies neck pain Cardiovascular: Cardiovascular: Denies chest pain and Denies dyspnea Respiratory: Respiratory: Denies dyspnea Gastrointestinal: Gastrointestinal: Reports no additional gastrointestinal complaints Genitourinary: Genitourinary: Denies dysuria Musculoskeletal: Musculoskeletal: Denies neck pain Integumentary/Breasts: Skin/Breast: Denies dry skin Neurologic: Reports Normal hearing present, Denies headache(s) and Denies weakness Psychiatric: Psychiatric: Denies anxiety Endocrine: Endocrine: Denies change in body appearance Hematologic/Lymphatic: Hematologic/Lymphatic: Denies easy bleeding Allergic/Immunologic: Allergic/Immunologic: Denies urticaria PMFSH Past Medical History Medical History (Updated 07/17/23 @ 12:32 by Rivera Montiel MD) Leukocytosis Rectal cancer Surgical History Surgical History (Updated 07/17/23 @ 12:32 by Rivera Montiel MD) History of colon resection History of ileostomy History of partial hysterectomy Social History Social History (Updated 07/15/23 @ 20:37 by Sheila Casey PA-C) Social History: Surrogate medical decision maker: Afshin Tanner, spouse. Code status: Full code. Smoking status: Never smoker Alcohol intake: current Alcohol use details: Social alcohol us
--- NOTE | 2023-07-17 14:09 | PM.DS ---
DS: Admitting Diagnosis Discharge Date 07/17/23 Admitting Diagnosis Sepsis, urinary tract infection, ileitis, dehydration DS: Discharge Diagnosis Discharge Diagnosis (1) Ileitis: Code(s): K52.9 - Noninfective gastroenteritis and colitis, unspecified Status: Acute (2) Urinary tract infection: Code(s): N39.0 - Urinary tract infection, site not specified Status: Acute (3) Dehydration: Code(s): E86.0 - Dehydration Status: Acute (4) Rectal cancer: Code(s): C20 - Malignant neoplasm of rectum Status: Acute DS: Summary Hospital Course Reason for hospitalization: Sepsis, urinary tract infection, ileitis, dehydration Hospital Course: 06/14/23: ( copy forward from chart) This is a very pleasant 58-year-old female with history of rectal cancer status post surgical resection and chemoradiation with prior ileostomy and subsequent reversal and history of partial hysterectomy who presented to the emergency department for evaluation of abdominal pain. The patient provides the following history. She felt fine when she went to bed last night and was awakened from sleep at about 03:00 with nausea, cramping periumbilical abdominal pain, and 1 episode of emesis which consisted of undigested food from the prior evenings dinner. She had 2 other episodes of emesis which she describes as green bile. This morning she passed two loose bowel movements which did not contain blood or mucus. She denies fever, chest pain, shortness of breath, hematemesis, melena, hematochezia, and dysuria. No known sick contacts. No personal or family history of inflammatory bowel disease. Of note the patient has chronic diarrhea and takes Imodium, Lomotil, and cholestyramine at home. In the ED: She was afebrile on arrival with stable blood pressures and heart rate. Labs were significant for a WBC count of 12.7, hemoglobin 15.8 hematocrit 48.3%, lactic acid 4.2. Urine was positive for 1+ protein, 1+ ketones, + blood positive nitrates, 2+ leukocyte esterase, greater than 4 WBC and 4+ bacteria CT of the abdomen and pelvis showed wall thickening along the distal ileum immediately proximal to the anastomosis at the terminal ileum consistent with nonspecific ileitis and a small of ascites in the pelvis. She received a dose of ceftriaxone and metronidazole in addition to normal saline bolus, ondansetron, and hydromorphone and she is being admitted in this setting for further treatment and evaluation. 06/15/23: On examination today patient is alert and oriented x3, lying in the bed.? she denies any fever, chills, nausea, vomiting, diarrhea, chest pain, shortness a breath.? She reports lower abdominal pain, and had normal bowel movement today.? labs today reveal potassium 3.3, lactic acid down to 1.7, white blood cell count down to 5.2, calcium 8.3.? Urine and blood cultures are pending.? We will continue Rocephin and Flagyl.? GI will also be consulted. 06/16/2023: On examination today patient denies any nausea, vomiting, diarrhea, abdominal pain, fever, chills, shortness of breath or chest pain. Her urine culture was positive for Klebsiella pneumoniae. Blood cultures showing no growth to date. Rocephin discontinued and patient was started on Cefdinir for the UTI. We will also continue Flagyl for GI coverage. I ordered a stool culture and C. diff that was never collected. GI was consulted as precautionary as they were told on admission that GI would be consulted and seen patient this morning. GI had nothing new to add to treatment plan. I got a phone call from the bedside nurse stating patient wanted to be discharged. Patient is stable for discharge at this time. We will send her home with prescriptions for cefdinir and Flagyl. She will follow-up with her GI doctor in about a week to 2 weeks. She will also need to follow with her primary care physician. Final diagnosis: Sepsis, Urinary tract infection ileitis, dehydration Status at Discharge Cognitive/behavio
== END 2023-07-17 14:46 | disposition home or self-care (01) | DRG 872 ==
LOC: ANHED 15:39 → ANH2MED 17:08
PROVIDERS: Physician Assistant; Admitting Provider Internal Medicine; Emergency Provider Emergency Medicine; Visit Provider Nurse Practitioner Acute Care
DX: A41.9 Sepsis, unspecified organism (principal); N39.0 Urinary tract infection, site not specified; K52.9 Noninfective gastroenteritis and colitis, unspecified; E86.0 Dehydration; B96.1 Klebsiella pneumoniae [K. pneumoniae] as the cause of diseases classified elsewhere; Z85.038 Personal history of other malignant neoplasm of large intestine
CPT/HCPCS: 36415; 74177; 80048; 80053; 81001; 83605; 83690; 85025; 85027; 85610; 85730; 87040; 87077; 87086; 87088; 87186; 96361; 96365; 96366; 96375; 99285; G0378; J0696; J1170; J1836; J2405; J7030; Q9967